=== PATIENT | female | born 1990 | race Caucasian/White ===

== ENCOUNTER 2022-01-14 11:42 | Emergency (ER) | payer OTHER ==
[~2022-01-14] VITALS: Ht 160 cm; Wt 127.0 kg
[2022-01-14] MEDS ORDERED: KETOROLAC 60MG/2ML VIAL IM ONE (17:00)
[2022-01-14] MEDS ORDERED: NAPR-681 MT (17:37)
[2022-01-14] MEDS ORDERED: LIDO1ADH23 TP (17:37)
[2022-01-14 18:07] VITALS: BP 155/81
== END 2022-01-14 18:07 | disposition home or self-care (01) ==
LOC: ER 11:54
DX: M94.0 Chondrocostal junction syndrome [Tietze] (principal); R07.89 Other chest pain
CPT/HCPCS: 71045; 93005; 99283

== ENCOUNTER 2025-06-25 15:18 | Emergency (ER) | payer SELFPAY ==
[~2025-06-25] VITALS: Ht 160 cm; Wt 126.0 kg
[~2025-06-25 15:18] MED LIST: LIDO1ADH23 TP; NAPR-681 MT
[2025-06-25 15:20] VITALS: O2SAT 99
[2025-06-25] MEDS: TETANUS, DIPHTHERIA, PERTUSSIS VAC/PF 0.5ML (>10YR OLD) IM ONE (17:06)
[2025-06-25] MEDS ORDERED: AMOX1TAB16 MT (17:19)
[2025-06-25 17:26] VITALS: BP 140/61; PULSE 62; RESP 16; TEMP 37; O2SAT 99
== END 2025-06-25 17:26 | disposition home or self-care (01) ==
LOC: ER 15:18
DX: S61.459A Open bite of unspecified hand, initial encounter (principal); W55.01XA Bitten by cat, initial encounter; Y93.89 Activity, other specified; Y92.89 Other specified places as the place of occurrence of the external cause; Y99.8 Other external cause status
CPT/HCPCS: 73120; 90471; 90715; 99283